=== PATIENT | female | born 1995 | race Caucasian/White ===

== ENCOUNTER → 2016-09-23 | Outpatient (CLI) | payer OTHER ==
[~2016-09-23] MED LIST: AMOXICILLIN250 M1 PO; AMOXIL400 MG/5 M PO; ANTIVERT25 MG PO; CLARITIN10 MG PO; EES400 MG PO; KEFLEX500 MG PO; LORTAB 480 ML480 ML PO; MOTRIN400 MG PO; PERIDEX 480 ML480 ML PO; PROVERA5 MG PO
[2016-09-23 08:31] LABS: BASO % 0.8 % (0.0-1.0); EOS # 0.1 10*3/uL (0.0-0.4); EOS % 1.9 % (1.0-4.0); HEMATOCRIT 41.2 % (37.0-47.0); HEMOGLOBIN 13.2 g/dl (12.0-16.0); LYMPH # 2.3 10*3/uL (1.3-4.4); LYMPH % 43.3 % (27.0-41.0); MEAN CORPUSCULAR HGB 29.5 pg (27.0-31.0); MEAN PLATELET VOLUME 10.9 fl (9.6-12.3); MONO # 0.4 10*3/uL (0.1-1.0); MONO % 7.7 % (3.0-9.0); NEUT # 2.4 10*3/uL (2.3-7.9); NEUT % 46.1 % (47.0-73.0); PLATELET COUNT AUTOMATED 249 10*3/uL (130-400); RED BLOOD COUNT 4.48 10*6/uL (4.10-5.10); RED CELL DISTRI WIDTH 12.8 % (0-14.5); WHITE BLOOD COUNT 5.2 10*3/uL (4.8-10.8)
[2016-09-23 09:04] LABS: BUN 12 mg/dl (7-24); CARBON DIOXIDE 28 mmol/L (21-32); CHLORIDE 106 mmol/L (98-107); EST GLOM FILT AFRICAN AMERICAN > 60 ml/min; GLUCOSE 78 mg/dL (65-99); POTASSIUM 4.2 mmol/L (3.5-5.1); SGPT/ALT 19 U/L (12-78); SODIUM 143 mmol/L (136-145)
== END | disposition home or self-care (01) ==
LOC: LAB 08:00
PROVIDERS: Internal Medicine Endocrinology, Diabetes & Metabolism
DX: D35.2 Benign neoplasm of pituitary gland (principal); K21.9 Gastro-esophageal reflux disease without esophagitis; E28.2 Polycystic ovarian syndrome; J45.20 Mild intermittent asthma, uncomplicated; M51.27 Other intervertebral disc displacement, lumbosacral region

== ENCOUNTER → 2017-01-11 | Outpatient (CLI) | payer OTHER ==
[2017-01-11 08:50] LABS: BASO % 0.5 % (0.0-1.0); EOS # 0.1 10*3/uL (0.0-0.4); EOS % 1.6 % (1.0-4.0); HEMOGLOBIN 13.3 g/dl (12.0-16.0); LYMPH # 2.2 10*3/uL (1.3-4.4); LYMPH % 37.5 % (27.0-41.0); MEAN CELL VOLUME 90.9 fl (81.0-99.0); MEAN CORPUSCULAR HGB 29.5 pg (27.0-31.0); MEAN CORPUSCULAR HGB CONC 32.4 g/dl (33.0-37.0); MEAN PLATELET VOLUME 11.3 fl (9.6-12.3); MONO # 0.5 10*3/uL (0.1-1.0); MONO % 9.4 % (3.0-9.0); NEUT # 2.9 10*3/uL (2.3-7.9); NEUT % 50.8 % (47.0-73.0); PLATELET COUNT AUTOMATED 245 10*3/uL (130-400); RED BLOOD COUNT 4.51 10*6/uL (4.10-5.10); RED CELL DISTRI WIDTH 12.7 % (0-14.5); WHITE BLOOD COUNT 5.7 10*3/uL (4.8-10.8)
[2017-01-11 09:08] LABS: BUN 11 mg/dl (7-24); CARBON DIOXIDE 27 mmol/L (21-32); CHLORIDE 105 mmol/L (98-107); EST GLOM FILT AFRICAN AMERICAN > 60 ml/min; GLUCOSE 80 mg/dL (65-99); POTASSIUM 4.3 mmol/L (3.5-5.1); SGPT/ALT 17 U/L (12-78); SODIUM 140 mmol/L (136-145)
== END | disposition home or self-care (01) ==
LOC: LAB 08:09
PROVIDERS: Internal Medicine Endocrinology, Diabetes & Metabolism
DX: D35.2 Benign neoplasm of pituitary gland (principal); E28.2 Polycystic ovarian syndrome; K21.9 Gastro-esophageal reflux disease without esophagitis; E55.9 Vitamin D deficiency, unspecified

== ENCOUNTER → 2017-05-12 | Outpatient (CLI) | payer OTHER ==
[2017-05-12 08:59] LABS: BASO % 0.7 % (0.0-1.0); EOS # 0.1 10*3/uL (0.0-0.4); EOS % 1.2 % (1.0-4.0); HEMATOCRIT 39.6 % (37.0-47.0); HEMOGLOBIN 13.1 g/dl (12.0-16.0); LYMPH # 1.8 10*3/uL (1.3-4.4); LYMPH % 29.5 % (27.0-41.0); MEAN CELL VOLUME 91.7 fl (81.0-99.0); MEAN CORPUSCULAR HGB 30.3 pg (27.0-31.0); MEAN CORPUSCULAR HGB CONC 33.1 g/dl (33.0-37.0); MEAN PLATELET VOLUME 11.2 fl (9.6-12.3); MONO # 0.4 10*3/uL (0.1-1.0); MONO % 6.8 % (3.0-9.0); NEUT # 3.7 10*3/uL (2.3-7.9); NEUT % 61.5 % (47.0-73.0); PLATELET COUNT AUTOMATED 252 10*3/uL (130-400); RED BLOOD COUNT 4.32 10*6/uL (4.10-5.10); RED CELL DISTRI WIDTH 12.9 % (0-14.5)
[2017-05-12 09:21] LABS: BUN 10 mg/dl (7-24); CHLORIDE 101 mmol/L (98-107); CREATININE 0.63 mg/dL (0.55-1.02); POTASSIUM 3.9 mmol/L (3.5-5.1); SGPT/ALT 14 U/L (12-78); SODIUM 137 mmol/L (136-145)
[2017-05-12 09:24] LABS: FREE T4 1.02 ng/dl (0.76-1.46)
== END | disposition home or self-care (01) ==
LOC: LAB 08:21
PROVIDERS: Internal Medicine Endocrinology, Diabetes & Metabolism
DX: D35.2 Benign neoplasm of pituitary gland (principal); E28.2 Polycystic ovarian syndrome; K21.9 Gastro-esophageal reflux disease without esophagitis; J45.20 Mild intermittent asthma, uncomplicated; E55.9 Vitamin D deficiency, unspecified; G60.3 Idiopathic progressive neuropathy; M51.27 Other intervertebral disc displacement, lumbosacral region

== ENCOUNTER → 2017-05-19 | Outpatient (CLI) | payer OTHER ==
[2017-05-19 16:29] LABS: BILIRUBIN NEGATIVE (NEGATIVE); BLOOD 3+ (NEGATIVE); CLARITY CLEAR (CLEAR); COLOR YELLOW (YELLOW); GLUCOSE NEGATIVE (NEGATIVE); KETONE NEGATIVE (NEGATIVE); LEUKO ESTERASE TRACE (NEGATIVE); NITRITE NEGATIVE (NEGATIVE); PH 6.5 (5.0-9.0); SPECIFIC GRAVITY <= 1.005 (1.005-1.030); UROBILINOGEN 0.2 E.U./dl (0.2-1.0)
== END | disposition home or self-care (01) ==
LOC: LAB 15:40 → US 16:00
PROVIDERS: Internal Medicine Endocrinology, Diabetes & Metabolism
DX: N39.0 Urinary tract infection, site not specified (principal); N32.89 Other specified disorders of bladder

== ENCOUNTER → 2017-06-01 | Outpatient (CLI) | payer OTHER | END | disposition home or self-care (01) | LOC: RAD 15:58 | DX: M79.89 Other specified soft tissue disorders (principal); M79.631 Pain in right forearm; D35.2 Benign neoplasm of pituitary gland ==

== ENCOUNTER → 2017-10-05 | Outpatient (CLI) | payer OTHER | END | disposition home or self-care (01) | LOC: MRI 09:50 | DX: D35.2 Benign neoplasm of pituitary gland (principal) ==

== ENCOUNTER → 2017-10-24 | Outpatient (CLI) | payer OTHER ==
[2017-10-24 09:57] LABS: BUN 12 mg/dl (7-24)
== END | disposition home or self-care (01) ==
LOC: LAB 09:30
PROVIDERS: Neurological Surgery
DX: E23.7 Disorder of pituitary gland, unspecified (principal)

== ENCOUNTER 2017-12-20 14:39 | Emergency (ER) | payer OTHER ==
[~2017-12-20] VITALS: Ht 157.4 cm; Wt 46.7 kg
[2017-12-20 15:46] LABS: BASO # 0.1 10*3/uL (0.0-0.1); BASO % 0.5 % (0.0-1.0); EOS # 0.1 10*3/uL (0.0-0.4); EOS % 0.5 % (1.0-4.0); HEMATOCRIT 44.3 % (37.0-47.0); HEMOGLOBIN 14.5 g/dl (12.0-16.0); LYMPH # 2.1 10*3/uL (1.3-4.4); LYMPH % 21.8 % (27.0-41.0); MEAN CELL VOLUME 91.3 fl (81.0-99.0); MEAN CORPUSCULAR HGB 29.9 pg (27.0-31.0); MEAN CORPUSCULAR HGB CONC 32.7 g/dl (33.0-37.0); MEAN PLATELET VOLUME 11.3 fl (9.6-12.3); MONO # 0.6 10*3/uL (0.1-1.0); MONO % 6.6 % (3.0-9.0); NEUT # 6.7 10*3/uL (2.3-7.9); NEUT % 70.4 % (47.0-73.0); PLATELET COUNT AUTOMATED 231 10*3/uL (130-400); RED BLOOD COUNT 4.85 10*6/uL (4.10-5.10); RED CELL DISTRI WIDTH 12.5 % (0-14.5); WHITE BLOOD COUNT 9.6 10*3/uL (4.8-10.8)
[2017-12-20 16:01] LABS: ALBUMIN 4.5 gm/dl (3.1-4.5); ALKALINE PHOSPHATASE 61 U/L (45-117); BUN 11 mg/dl (7-24); CHLORIDE 104 mmol/L (98-107); CREATININE 0.89 mg/dL (0.55-1.02); LIPASE 141 U/L (73-393); POTASSIUM 3.7 mmol/L (3.5-5.1); SGOT/AST 8 IU/L (3-35); SGPT/ALT 14 U/L (12-78); SODIUM 139 mmol/L (136-145); TOTAL PROTEIN 7.7 gm/dL (6.4-8.2)
[2017-12-20 16:53] LABS: BILIRUBIN NEGATIVE (NEGATIVE); BLOOD NEGATIVE (NEGATIVE); CLARITY CLEAR (CLEAR); COLOR YELLOW (YELLOW); GLUCOSE NEGATIVE (NEGATIVE); KETONE TRACE (NEGATIVE); LEUKO ESTERASE NEGATIVE (NEGATIVE); NITRITE NEGATIVE (NEGATIVE); PH 7.5 (5.0-9.0); UROBILINOGEN 0.2 E.U./dl (0.2-1.0)
[2017-12-20 16:59] LABS: BACTERIA TRACE
== END 2017-12-20 19:10 | disposition home or self-care (01) ==
LOC: ED 14:39
PROVIDERS: Physician Assistant
DX: R10.31 Right lower quadrant pain (principal); Z90.89 Acquired absence of other organs

== ENCOUNTER → 2018-03-05 | Outpatient (CLI) | payer OTHER ==
[2018-03-05 08:42] LABS: ALBUMIN 4.1 gm/dl (3.1-4.5); BUN 11 mg/dl (7-24); CHLORIDE 106 mmol/L (98-107); CREATININE 0.63 mg/dL (0.55-1.02); POTASSIUM 3.9 mmol/L (3.5-5.1); SODIUM 141 mmol/L (136-145)
[2018-03-05 08:49] LABS: FREE T4 0.85 ng/dl (0.76-1.46)
[2018-03-05 09:57] LABS: VITAMIN D, 25-HYDROXY 16.8 ng/mL (30-100)
[2018-03-06 08:09] LABS: DHEA SULFATE 137.7 ug/dL (110.0-431.7); PROLACTIN 004465 54.3 ng/mL (4.8-23.3)
== END | disposition home or self-care (01) ==
LOC: LAB 07:42
PROVIDERS: Internal Medicine
DX: E28.2 Polycystic ovarian syndrome (principal); E55.9 Vitamin D deficiency, unspecified; D35.2 Benign neoplasm of pituitary gland; K21.9 Gastro-esophageal reflux disease without esophagitis

== ENCOUNTER → 2018-03-26 | Outpatient (CLI) | payer OTHER | END | disposition home or self-care (01) | LOC: LAB 07:38 | DX: D35.2 Benign neoplasm of pituitary gland (principal) ==